=== PATIENT | male | born 1990 | race Caucasian/White ===

== ENCOUNTER → 2019-01-07 | Outpatient (CLI) | payer OTHER ==
[~2019-01-07] MED LIST: OXYC15TA PO
[2019-01-07 12:09] LABS: BASOPHILS # (AUTO) 0.03 x10^3/uL (0-0.1); BASOPHILS % (AUTO) 0 % (0-1); EOSINOPHILS # (AUTO) 0.03 x10^3/uL (0-0.4); EOSINOPHILS % (AUTO) 0 % (1-7); LYMPHOCYTES # (AUTO) 2.21 x10^3/uL (1-3.4); LYMPHOCYTES % (AUTO) 31 % (22-44); MD NO; MEAN CORPUSCULAR HEMOGLOBIN 30.6 pg (27.5-34.5); MEAN CORPUSCULAR HGB CONC 34.6 g/dL (33.2-36.2); MEAN CORPUSCULAR VOLUME 88.5 fL (81-97); MEAN PLATELET VOLUME 7.7 fL (7.4-10.4); MONOCYTES # (AUTO) 0.45 x10^3/uL (0.2-0.8); MONOCYTES % (AUTO) 6 % (2-9); NEUTROPHILS # (AUTO) 4.54 x10^3/uL (1.8-6.8); NEUTROPHILS % (AUTO) 63 % (42-75); PLATELET COUNT 271 x10^3/uL (130-400); RED BLOOD COUNT 5.23 x10^6/uL (4.38-5.82); RED CELL DISTRIBUTION WIDTH 13.5 % (9.4-14.8)
== END | disposition home or self-care (01) ==
LOC: STAR 11:19
PROVIDERS: ATTEND Otolaryngology Facial Plastic Surgery
DX: Z01.818 Encounter for other preprocedural examination (principal); S02.2XXA Fracture of nasal bones, initial encounter for closed fracture; J34.2 Deviated nasal septum; X58.XXXA Exposure to other specified factors, initial encounter; Y93.89 Activity, other specified; Y92.89 Other specified places as the place of occurrence of the external cause; Y99.8 Other external cause status
CPT/HCPCS: 36415; 85025

== ENCOUNTER 2019-01-13 08:58 | Day surgery (SDC) | payer OTHER ==
[2019-01-07 11:47] VITALS: BP 119/80
[~2019-01-13] VITALS: Ht 175.3 cm; Wt 79.2 kg
[2019-01-13] MEDS ORDERED: LACTATED RINGERS 1,000 ML IV SCH (09:25)
[2019-01-13] MEDS ORDERED: MIDAZOLAM 1 MG/ML, 2ML ONE (11:08)
[2019-01-13] MEDS ORDERED: FENTANYL PF 250 MCG/5ML ONE (11:08)
[2019-01-13] MEDS ORDERED: CEFAZOLIN 1,000 MG ONE (11:09)
[2019-01-13] MEDS ORDERED: OXYMETAZOLINE NASAL SPRAY 0.05%, 15ML ONE (11:09)
[2019-01-13] MEDS ORDERED: MUPIROCIN OINT 2%, 22GM ONE (11:09)
[2019-01-13] MEDS ORDERED: GLYCOPYRROLATE 0.2MG/1ML, 5ML ONE (11:09)
[2019-01-13] MEDS ORDERED: NEOSTIGMINE 1 MG/ML, 10ML ONE (11:09)
[2019-01-13] MEDS ORDERED: PROPOFOL 10 MG/ML, 20ML ONE (11:09)
[2019-01-13] MEDS ORDERED: ROCURONIUM 10MG/ML,5ML ONE (11:09)
[2019-01-13] MEDS ORDERED: COCAINE TOPICAL SOLN 4%, 4ML ONE (11:09)
[2019-01-13] MEDS ORDERED: LIDOCAINE 1%-EPI 1:100K, 20ML ONE (11:10)
[2019-01-13] MEDS ORDERED: LABETALOL 5MG/ML, 20ML IV PRN (11:30)
[2019-01-13] MEDS ORDERED: PROMETHAZINE 25 MG SUPP PR PRN (11:30)
[2019-01-13] MEDS ORDERED: MORPHINE SULFATE 4 MG/ML, 1ML IVPush PRN (11:30)
[2019-01-13] MEDS ORDERED: PROMETHAZINE 12.5 MG SUPP PR PRN (11:30)
[2019-01-13] MEDS ORDERED: hydrALAzine 20 MG/ML, 1ML IV PRN (11:30)
[2019-01-13] MEDS ORDERED: ONDANSETRON ODT 8 MG PO PRN (11:30)
[2019-01-13] MEDS ORDERED: PROMETHAZINE 25 MG/ML, 1ML IV PRN (11:30)
[2019-01-13] MEDS ORDERED: HYDROmorphone 2 MG/ML, 1ML IVPush PRN (11:30)
[2019-01-13] MEDS ORDERED: ACETAMINOPHEN 325 MG TABLET PO PRN (11:30)
[2019-01-13] MEDS ORDERED: MEPERIDINE/PF 25MG/0.5ML IVPush PRN (11:30)
[2019-01-13] MEDS ORDERED: PROMETHAZINE 25 MG/ML, 1ML IM PRN ×2 (11:30)
[2019-01-13] MEDS ORDERED: ONDANSETRON 2MG/ML, 2ML IV PRN (11:30)
[2019-01-13] MEDS ORDERED: OXYcodone 5 MG/5 ML ORAL.SOL UDC PO PRN (11:30)
[2019-01-13] MEDS ORDERED: OXYcodone 5 MG/5 ML ORAL.SOL UDC ONE (13:35)
[2019-01-13] MEDS ORDERED: ACETAMINOPHEN 325 MG TABLET ONE (13:35)
[2019-01-13] MEDS ORDERED: ONDANSETRON 2MG/ML, 2ML ONE (13:41)
[2019-01-13] MEDS ORDERED: PROMETHAZINE 25 MG/ML, 1ML ONE (13:41)
[2019-01-13] MEDS ORDERED: FENTANYL PF 100 MCG/2ML ONE (13:42)
[2019-01-13] MEDS: FENTANYL PF 100 MCG/2ML IV PRN ×2 (13:46→14:05)
[2019-01-13] MEDS ORDERED: MORPHINE SULFATE 4 MG/ML, 1ML ONE (14:11)
== END 2019-01-13 18:05 | disposition home or self-care (01) ==
LOC: OUT 08:58
PROVIDERS: ATTEND Otolaryngology Facial Plastic Surgery
DX: S02.2XXA Fracture of nasal bones, initial encounter for closed fracture (principal); J34.2 Deviated nasal septum; J34.89 Other specified disorders of nose and nasal sinuses; J34.3 Hypertrophy of nasal turbinates; X58.XXXA Exposure to other specified factors, initial encounter; Y93.89 Activity, other specified; Y92.89 Other specified places as the place of occurrence of the external cause; Y99.8 Other external cause status
CPT/HCPCS: 30140; 30465; 30520; J0690; J2250; J2405; J2550; J2704; J2710; J3010; J3490; J7120